=== PATIENT | female | born 1960 | race Caucasian/White ===

== ENCOUNTER 2024-11-09 11:05 | Emergency (ER) | payer OTHER ==
[2024-11-09 11:39] VITALS: PULSE 73; TEMP 98.6
--- NOTE | 2024-11-09 11:40 | ERPHSYRPT ---
- History of Present Illness Time Seen by Provider: 11/09/24 11:40 Source: patient, family Exam Limitations: no limitations Patient Subjective Stated Complaint: pt fell at school and cut her chin and has a headache Triage Nursing Assessment: Pt was brought to the ER by her daughter, hypertensive, rates head/chin pain as 3/10, pulses normal, skin n/w/d, does not feel like she needs her head checked but thinks she may need stitches, pt reports that there was a gas smell at the school and she opened a cabinet and breathed it in and then she passed out in the presence of another person, doesn't appear to be in any distress Physician History: This is a 64-year-old white female patient who arrives by private vehicle after falling at work. She works at the local high school. Patient does not recall all the events. She does recall smelling a scent of gas. It is unclear to her whether or not this caused her to fall. She fell directly onto the concrete floor causing a small chin laceration. Patient is not on any medications but does have a history in the past of hyperlipidemia and hypertension. She states that at the school her systolic blood pressure was 105. This type of episode is never occurred in the past. Patient states that she feels she is back to her typical baseline. Her systolic blood pressure is running 145. Patient denies chest pain. Patient denies shortness of breath. Occurred: just prior to arrival Reason for Fall: unknown, fell from height Injuries/Pain Location: face Loss of Consciousness: unsure Quality: aching Severity of Pain-Max: mild Severity of Pain-Current: none Modifying Factors: Improves With: nothing Associated Symptoms (Fall): denies symptoms Allergies/Adverse Reactions: codeine Allergy (Verified 11/09/24 11:38) Home Medications: No Reportable Medications [No Reported Medications] 11/09/24 [History] Hx Influenza Vaccination/Date Given: No Travel Risk - International Travel Have you traveled outside of the country in past 3 weeks: No - Emerging Infectious Disease Are you exhibiting symptoms associated with any current EIDs: No - Review of Systems Constitutional: No Symptoms Eyes: No Symptoms Ears, Nose, & Throat: Other (1 cm skin laceration with Steri-Strips in place) Respiratory: No Symptoms Cardiac: No Symptoms Abdominal/Gastrointestinal: No Symptoms Genitourinary Symptoms: No Symptoms Musculoskeletal: No Symptoms Skin: Other (1 cm skin laceration with Steri-Strips in place) Neurological: No Symptoms Psychological: No Symptoms Endocrine: No Symptoms Hematologic/Lymphatic: No Symptoms Immunological/Allergic: No Symptoms All Other Systems: Reviewed and Negative - Past Medical History Pertinent Past Medical History: Yes Cardiac History: High Cholesterol, Hypertension - Past Surgical History Past Surgical History: Yes Female Surgical History: Hysterectomy Other Surgical History: thyroidectomy - Social History Smoking Status: Never smoker Exposure to second hand smoke: No Drug Use: none - Social Determinants of Health Will the patient participate in the screening: Yes Do you worry about a steady place to live?: No Do you have any problems with any of the following?: No known problems In the past 12 months,have you had to go without utilities?: No Transportation Issues: No Has anyone in your support network made you feel unsafe?: No Have you or anyone in your house had to go w/o enough food: No - Nursing Vital Signs Nursing Vital Signs: Initial Vital Signs Temperature 98.6 F 11/09/24 11:31 Pulse Rate 73 11/09/24 11:31 Blood Pressure 145/78 11/09/24 11:31 O2 Sat by Pulse Oximetry 99 11/09/24 11:31 Pain Scale Pain Intensity 3 - Gary Coma Score Best Eye Response (Richar): (4) open spontaneously Best Verbal Response (Gary): (5) oriented Best Motor Response (Richar): (6) obeys commands Gary Total: 15 - Physical Exam General Appearance: no apparent distress, alert, anxiety, thin Head Injury: lacerations (1 cm skin laceration with Steri-Strips in place. These were placed prior to arrival to the emergency department) Eye Exam: PERRL/EOMI, eyes nml inspection ENT Exam: airway nml, evidence of ENT injury, No dental injury Neck Exam: supple, trachea midline, full range of motion, normal alignment, normal inspection Respiratory/Chest Exam: normal breath sounds, No chest tenderness, No respiratory distress, No ecchymosis, No crepitus Cardiovascular Exam: normal heart sounds, regular rate/rhythm Gastrointestinal Exam: soft, normal bowel sounds, No tenderness Rectal Exam: not done Back Exam: normal inspection, normal range of motion, No CVA tenderness, No vertebral tenderness Extremity Exam: normal inspection, normal range of motion, capillary refill <3 sec, pelvis stable Neurologic Exam: alert, oriented x 3, cooperative, hot die press feeder II-XII nml as tested, normal mood/affect, nml cerebellar function, nml station & gait, sensation nml Skin Exam: laceration (1 cm skin chin laceration with Steri-Strips in place) SpO2 Interpretation: normal SpO2: 99 O2 Delivery: Room Air Procedures - Laceration/Wound Repair Face Time of Procedure: 14:40 Wound Location: face (Chin) Wound Length (cm): 1 Wound's Depth, Shape: superficial, linear Wound Explored: clean (Wound explored to the base in a bloodless field and no foreign body noted) Irrigated: Yes Hibiclens Prep: Yes Wound Repaired With: Steri-strips, Dermabond Layer Closure?: No Progress: 11/09/24 14:49 The area was prepped with benzoin prep pad. The Dermabond was placed followed by 1/2 inch Steri-Strips. There were no complications. Patient tolerated the procedure well - Course Nursing assessment & vital signs reviewed: Yes EKG Interpreted by Me: RATE (58), Sinus Rhythm, NORMAL AXIS, NORMAL INTERVALS, NORMAL QRS, Other (QTc is 423. No acute ischemia.) Ordered Tests: Active Orders 24 hr Category Date Time Status EKG-ER Only STAT Care 11/09/24 12:04 Active IV Insertion STAT Care 11/09/24 12:04 Active Pulse Oximetry (ED) STAT Care 11/09/24 12:04 Active CERVICAL SPINE WO CONTRAST [CT] Stat Exams 11/09/24 11:40 Completed FACIAL BONES WO CONTRAST [CT] Stat Exams 11/09/24 11:40 Completed HEAD WITHOUT CONTRAST [CT] Stat Exams 11/09/24 11:40 Completed CBC W DIFF Stat Lab 11/09/24 12:23 Completed CMP Stat Lab 11/09/24 12:23 Completed MAGNESIUM Stat Lab 11/09/24 12:23 Completed TROPONIN Q4H Lab 11/09/24 12:23 Completed TROPONIN Q4H Lab 11/09/24 16:15 Ordered TROPONIN Q4H Lab 11/09/24 20:15 Ordered UA W/RFX UR CULTURE Stat Lab 11/09/24 14:11 Completed Medication Summary Discontinued Medications Generic Name Dose Route Start Last Admin Trade Name Freq PRN Reason Stop Dose Admin Sodium Chloride 1,000 mls @ 999 mls/hr 11/09/24 12:04 11/09/24 14:08 Sodium Chloride 0.9% 1000 Ml IV 11/09/24 13:04 Infused .Q1H1M STA Infusion Sodium Chloride Confirm 11/09/24 12:34 Sodium Chloride 0.9% 1000 Ml Administered 11/09/24 12:35 Dose 1,000 mls @ ud .ROUTE .STK-MED ONE Lab/Rad Data: Laboratory Result Diagrams 11/09/24 12:23 11/09/24 12:23 Laboratory Results 11/09/24 11/09/24 11/09/24 Range/Units 14:11 12:23 12:23 WBC (3.98-10.04) x10^3/uL RBC (3.93-5.22) x10^6/uL Hgb (11.2-15.7) g/dL Hct (34.1-44.9) % MCV (79.4-94.8) fL MCH (25.6-32.2) pg MCHC (32.2-35.5) g/dL RDW (11.7-14.4) % Plt Count (182-369) x10^3/uL MPV (9.4-12.3) fL Gran % (34.0-71.1) % Immature Gran % (Auto) (0.001-0.429) % Nucleat RBC Rel Count (0.00-0.2) % Eos # (Auto) (0.04-0.36) x10^3/uL Immature Gran # (Auto) (0.001-0.031) x10^3u/L Absolute Lymphs (auto) (1.18-3.74) x10^3/uL Absolute Monos (auto) (0.24-0.86) x10^3/uL Absolute Nucleated RBC (0.00-0.012) x10^3u/L Lymphocytes % (19.3-51.7) % Monocytes % (4.7-12.5) % Eosinophils % (0.7-5.8) % Basophils % (0.1-1.2) % Absolute Granulocytes (1.56-6.13) x10^3/uL Basophils # (0.01-0.08) x10^3/uL Sodium 141 (135-145) mmol/L Potassium 4.0 (3.5-5.1) mmol/L Chloride 105 (98-107) mmol/L Carbon Dioxide 27 (22-30) mmol/L Anion Gap 12.9 (5-15) MEQ/L BUN 11 (7-17) mg/dL Creatinine 0.65 (0.52-1.04) mg/dL Estimated GFR 97.7 ML/MIN Glucose 92 (74-106) mg/dL Calcium 9.9 (8.4-10.2) mg/dL Magnesium 1.8 (1.6-2.3) mg/dL Total Bilirubin 0.30 (0.2-1.3) mg/dL AST 26 (14-36) U/L ALT 15 (0-35) U/L Alkaline Phosphatase 66 (38-126) U/L Troponin I < 0.012 (0.000-0.033) ng/mL Serum Total Protein 6.6 (6.3-8.2) g/dL Albumin 4.4 (3.5-5.0) g/dL Urine Color Yellow (Yellow) Urine Appearance Clear (Clear) Urine pH 7.0 (4.6-8.0) Ur Specific [place] 1.010 (1.005-1.030) Urine Protein Negative (Negative) Urine Glucose (UA) Negative (Negative) mg/dL Urine Ketones Negative (Negative) Urine Blood Negative (Negative) Urine Nitrite Negative (Negative) Urine Bilirubin Negative (Negative) Urine Urobilinogen 0.2 (0.2) mg/dL Ur Leukocyte Esterase Trace A (Negative) U Hyaline Cast (Auto) NONE SEEN (0-2) /LPF Urine Microscopic RBC 0-2 (0-5) /HPF Urine Microscopic WBC 0-2 (0-5) /HPF Ur Epithelial Cells Rare (None Seen) /HPF Urine Bacteria None Seen (None Seen) /HPF Urine Culture Reflexed NO (NO) 11/09/24 Range/Units 12:23 WBC 7.5 (3.98-10.04) x10^3/uL RBC 4.01 (3.93-5.22) x10^6/uL Hgb 12.9 (11.2-15.7) g/dL Hct 38.0 (34.1-44.9) % MCV 94.8 (79.4-94.8) fL MCH 32.2 (25.6-32.2) pg MCHC 33.9 (32.2-35.5) g/dL RDW 12.3 (11.7-14.4) % Plt Count 291 (182-369) x10^3/uL MPV 10.6 (9.4-12.3) fL Gran % 71.8 H (34.0-71.1) % Immature Gran % (Auto) 0.5 H (0.001-0.429) % Nucleat RBC Rel Count 0.0 (0.00-0.2) % Eos # (Auto) 0.06 (0.04-0.36) x10^3/uL Immature Gran # (Auto) 0.04 H (0.001-0.031) x10^3u/L Absolute Lymphs (auto) 1.53 (1.18-3.74) x10^3/uL Absolute Monos (auto) 0.43 (0.24-0.86) x10^3/uL Absolute Nucleated RBC 0.00 (0.00-0.012) x10^3u/L Lymphocytes % 20.4 (19.3-51.7) % Monocytes % 5.7 (4.7-12.5) % Eosinophils % 0.8 (0.7-5.8) % Basophils % 0.8 (0.1-1.2) % Absolute Granulocytes 5.39 (1.56-6.13) x10^3/uL Basophils # 0.06 (0.01-0.08) x10^3/uL Sodium (135-145) mmol/L Potassium (3.5-5.1) mmol/L Chloride (98-107) mmol/L Carbon Dioxide (22-30) mmol/L Anion Gap (5-15) MEQ/L BUN (7-17) mg/dL Creatinine (0.52-1.04) mg/dL Estimated GFR ML/MIN Glucose (74-106) mg/dL Calcium (8.4-10.2) mg/dL Magnesium (1.6-2.3) mg/dL Total Bilirubin (0.2-1.3) mg/dL AST (14-36) U/L ALT (0-35) U/L Alkaline Phosphatase (38-126) U/L Troponin I (0.000-0.033) ng/mL Serum Total Protein (6.3-8.2) g/dL Albumin (3.5-5.0) g/dL Urine Color (Yellow) Urine Appearance (Clear) Urine pH (4.6-8.0) Ur Specific [place] (1.005-1.030) Urine Protein (Negative) Urine Glucose (UA) (Negative) mg/dL Urine Ketones (Negative) Urine Blood (Negative) Urine Nitrite (Negative) Urine Bilirubin (Negative) Urine Urobilinogen (0.2) mg/dL Ur Leukocyte Esterase (Negative) U Hyaline Cast (Auto) (0-2) /LPF Urine Microscopic RBC (0-5) /HPF Urine Microscopic WBC (0-5) /HPF Ur Epithelial Cells (None Seen) /HPF Urine Bacteria (None Seen) /HPF Urine Culture Reflexed (NO) - Progress Progress: improved, re-examined Progress Note: 11/09/24 12:36 My medical decision making and the assignment of moderate complexity is based on review of the patient's past medical history, review the patient's medication list, reviewed patient drug allergy list, history present illness and physical findings on examination. The workup in this patient includes CT scan of the head, CT scan of the face, CT scan of cervical spine all without contrast. In addition we we will place an intravenous line and infuse crystalloid solution, perform a twelve-lead EKG, troponin level, CBC, CMP, magnesium and urinalysis. Differential includes but is not limited to syncopal episode, dehydration, urinary tract infection, electrolyte abnormalities, acute intracranial abnormality, cervical spine fracture/subluxation/strain, facial bone fracture/dislocation/contusion 11/09/24 14:[address] scans performed were all without contrast and interpreted by the radiologist. The impressions are as follows: CT scan of the head shows no acute intracranial abnormality. There is no evidence of fracture. CT scan of the cervical spine shows no acute fracture or dislocation. There are mild degenerative changes. There is multilevel disc bulges at C2-C6. CT scan of the facial bones shows no acute fracture or dislocation. 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 There is also soft tissue and mild skin thickening at the level of the chin. 11/09/24 14:48 The urinalysis was interpreted by me. There is no evidence of any urinary tract infection. 11/09/24 14:50 Patient has no chest pain. Patient is not dizzy. Counseled pt/family regarding: lab results, diagnosis, need for follow-up, rad results Medical Desision Making - Independent Historian Additional History obtained from: Family - Diagnostic Testing Diagnostic test were ordered, analyzed, and reviewed by me: Yes Radiological Interpretation: Reviewed by me, Teleradiologist Report - Risk of complications Low Risk: Low risk of morbidity from additional dx testing or treatment - Departure Departure Disposition: Home Clinical Impression: Dizzy, Fall with significant injury, Laceration of chin Condition: Stable Critical Care Time: No Referrals: SUPRIYA HUERTA, ENGINEERING MECHANIC [Primary Care Provider, UNKNOWN] - Follow up/PCP as directed Additional Instructions: Keep the Steri-Strips in place. Keep them dry. Tomorrow evening, 11/09/2024, may rinse the laceration repair site with soapy water. Blot dry use a liberal arts and humanities chair. Trim the Steri-Strips as they curl up. Call your primary care provider today, 11/09/2024, to make a follow-up appointment for further evaluation management.
[2024-11-09] MEDS ORDERED: Sodium Chloride 0.9% 1000 ML 1,000 ML ONE (12:34)
[2024-11-09 12:37] LABS: Absolute Neutrophil Ct (ANC) 5.39 x10^3/uL (1.56-6.13); BASOPHIL % 0.8 % (0.1-1.2); Basophil (Absolute #) 0.06 x10^3/uL (0.01-0.08); Eosinophil % 0.8 % (0.7-5.8); Eosinophil (Absolute #) 0.06 x10^3/uL (0.04-0.36); Hemoglobin 12.9 g/dL (11.2-15.7); IMMATURE GRAN # 0.04 x10^3u/L (0.001-0.031); IMMATURE GRAN % 0.5 % (0.001-0.429); Lymphocyte (Absolute #) 1.53 x10^3/uL (1.18-3.74); Lymphocytes % 20.4 % (19.3-51.7); Mean Cell Volume 94.8 fL (79.4-94.8); Mean Corpuscular Hemoglobin 32.2 pg (25.6-32.2); Mean Corpuscular Hgb Concent. 33.9 g/dL (32.2-35.5); Mean Platelet Volume 10.6 fL (9.4-12.3); Monocyte (Absolute #) 0.43 x10^3/uL (0.24-0.86); Monocytes % 5.7 % (4.7-12.5); Neutrophil % 71.8 % (34.0-71.1); Platelet Count 291 x10^3/uL (182-369); Red Blood Count 4.01 x10^6/uL (3.93-5.22); Red Cell Distribution Width 12.3 % (11.7-14.4); White Blood Count 7.5 x10^3/uL (3.98-10.04)
[2024-11-09 12:49] LABS: ALBUMIN 4.4 g/dL (3.5-5.0); ANION GAP 12.9 MEQ/L (5-15); BILIRUBIN,TOTAL 0.3 mg/dL (0.2-1.3); Calcium 9.9 mg/dL (8.4-10.2); Creatinine 1 0.65 mg/dL (0.52-1.04); EST GLOMERULAR FILTRATION RATE 97.7 ML/MIN; MAGNESIUM 1.8 mg/dL (1.6-2.3); Total Protein 6.6 g/dL (6.3-8.2)
--- NOTE | 2024-11-09 12:49 | XRAY ---
CLINICAL HISTORY: Fall injury COMPARISON: None. TECHNIQUE: An axial non-contrast CT scan of the brain was performed from the skull base to the high parietal region. One of the following dose reduction techniques was utilized for this exam: Automated exposure control, adjustment of the mA and/or kV according to patient size, and use of iterative reconstruction. FINDINGS: Brain Parenchyma: Normal attenuation of the cerebral hemispheres, cerebellum, and brainstem. No evidence of acute infarct, hemorrhage, or mass effect. No abnormal areas of hypo- or hyperattenuation. Ventricular System: Ventricles are normal in size and configuration. No evidence of hydrocephalus or ventricular enlargement. Subarachnoid Spaces: Accentuated cortical sulci and extra-axial CSF spaces in bilateral parietal region, consistent with age A 14x11 mm extra-axial rounded fluid density lesion is seen adjacent to the right cerebral peduncle of the mid-brain. No evidence of subarachnoid hemorrhage. Cerebellum and Brainstem: No masses, lesions, or areas of abnormal density. Orbits: Normal appearance of the globes, optic nerves, and extraocular muscles. No evidence of orbital masses or abnormal density. Sinuses: Clear paranasal sinuses. No evidence of sinusitis or mucosal thickening. Mastoid Air Cells: Clear mastoid air cells. No evidence of mastoiditis. Skull: Normal skull morphology. No calvarial fracture or scalp hematoma. A 19 x 14 mm hyperdensity is seen on the posterior surface of the head outside the skin surface - likely artifactual/hair clip with hair tuft. IMPRESSION: 1. No calvarial fractures, intra or extra-axial hematomas, or parenchymal territorial hypodense areas suggestive of acute ischemic insult. 2. Age-matched cortical brain involutional changes. 3. A 14 x 11 mm extra-axial rounded fluid density lesion is seen adjacent to the right cerebral peduncle of the midbrain - likely a small arachnoid cyst. Electronically Signed by: Piotr Ortiz MD. (11/09/2024 12:47:11 EDT)
[2024-11-09] MEDS: Sodium Chloride 0.9% 1000 ML 1,000 ML IV STA (12:55)
--- NOTE | 2024-11-09 12:57 | XRAY ---
CLINICAL HISTORY: Fall injury COMPARISON: No previous studies are available for comparison. TECHNIQUE: CT scan of the cervical spine was performed without the administration of intravenous contrast. Contiguous axial images were obtained from the skull base to the upper thoracic spine. Coronal and sagittal reformatted images were also reviewed. One of the following dose reduction techniques was utilized for this exam. Automated exposure control, adjustment of the mA and/or kV according to patient size, and use of iterative reconstruction. FINDINGS: Vertebrae: Cervical tilt towards left cranially. The vertebral bodies are normal in height. Multilevel end plate irregularities, as seen more evident at inferior end plates of C6 and C7 vertebral bodies with Schmorl nodes. Tiny anterior osteophytes are seen at multiple levels as well. No evidence of acute fracture or dislocation. No signs of lytic or sclerotic lesions. Normal configuration of the posterior elements. Atlanto-axial and atlanto-occipital joints show mild degenerative changes Intervertebral Discs: The intervertebral disc spaces are preserved. Multilevel central disc bulges are seen from C2 to C6 levels, indenting ventral thecal sac. Disc osteophytic complex at C6-C7 level is indenting ventral thecal sac and partially obliterating bilateral neural foramina causing compression of bilateral exiting nerve roots right more than left. Facet Joints: The facet joints show no evidence of dislocation or subluxation, however multilevel degenerative changes are seen at lower cervical levels on the left side. Prevertebral Soft Tissues: The prevertebral soft tissues are normal in thickness without evidence of mass or abnormal fluid collection. Additional Findings: No other significant findings are noted in the visualized soft tissue structures or bony elements. Slices through lung apices bilateral apical pleural thickening. Deficient right lobe of thyroid gland. IMPRESSION: 1. CT scan of the cervical spine shows no evidence of acute fracture, dislocation. 2. Mild degenerative changes. 3. Multilevel central disc bulges are seen from C2 to C6 levels, indenting ventral thecal sac. 4. Disc osteophytic complex at C6-C7 level is indenting ventral thecal sac and partially obliterating bilateral neural foramina causing moderate compression of bilateral exiting nerve roots right more than left. MRI cervical spine is advised if clinically indicated. Electronically Signed by: Piotr Ortiz MD. (11/09/2024 12:54:04 EDT)
--- NOTE | 2024-11-09 13:21 | XRAY ---
CLINICAL HISTORY: Fall injury COMPARISON: No previous studies are available for comparison. TECHNIQUE: CT scan of the maxillofacial region was performed without the administration of intravenous contrast. Contiguous axial images were obtained from the skull base to the mandible. Coronal and sagittal reformatted images were also reviewed. One of the following dose reduction techniques was utilized for this exam. Automated exposure control, adjustment of the mA and/or kV according to patient size, and use of iterative reconstruction. FINDINGS: Bones: Maxilla: The maxillary bones are intact without evidence of acute fracture, lytic or sclerotic lesions. No signs of maxillary sinus wall fractures. Mandible: The mandibular bone is intact with normal cortices and trabecular patterns. There is no evidence of fracture, osteomyelitis. Torus mandibularis noted. Zygomatic Bones: The zygomatic arches are intact bilaterally without evidence of fracture or deformity. Nasal Bones: The nasal bones are intact with no signs of fracture or displacement. Orbital Estes: The orbital estes are intact with no evidence of fracture or bony erosion. Orbits: The orbits are normal in size and shape. The globes are symmetric and well-positioned with no evidence of proptosis. The extraocular muscles appear normal in size and symmetry. The optic nerves are normal in caliber and course with no signs of compression or lesion. No retro-orbital masses or abnormal fluid collections are observed. Nasal Cavity and Paranasal Sinuses: Nasal Cavity: The nasal cavity is clear with no evidence of masses, polyps, or septal deviation. Frontal Sinuses: The frontal sinuses are well-pneumatized and free of fluid or soft tissue masses. Ethmoid Sinuses: The ethmoid air cells are clear with no mucosal thickening or fluid levels. Maxillary Sinuses: The maxillary sinuses are well-pneumatized with no fluid levels, mucosal thickening, or masses. Sphenoid Sinuses: The sphenoid sinuses are clear with no abnormalities noted. Temporomandibular Joints (TMJ): Bilatearl Mild TMJ osotearhtirits. The mandibular condyles are well-positioned within the glenoid fossae. There are no signs of dislocation, subluxation, or degenerative changes. The articular eminences are normal in contour. Soft Tissues: Mild soft tissue and skin thickening is seen at chin - likely post traumatic injury. There are no masses, cysts, or abnormal fluid collections. The parotid and submandibular glands are normal in size and appearance without focal lesions. Dentition: Erosions of 2nd upper molar crown on right side with osteolysis of alveolar tooth bed. Complete erosion of 1st and 2nd molar crown on left side as well as premolar and canine with osteolysis of alveolar tooth bed. Teeth are missing in inferior alveolar arch as well. Additional Findings: Bilateral subcentimeter reactive upper cervical lymph nodes are seen. IMPRESSION: 1. CT scan of the maxillofacial region shows no evidence of acute fracture or dislocation. 2. Mild soft tissue and skin thickening is seen at chin - likely post-traumatic injury. 3. Torus mandibularis noted. normal variant. 4. Erosive changes in teeth, with osteolysis surrounding roots. 5. Bilateral Mild TMJ Osteoarthritis. RECOMMENDATIONS: No further imaging is required at this time. Clinical correlation is recommended for any persistent symptoms. Electronically Signed by: Piotr Ortiz MD. (11/09/2024 13:17:29 EDT)
[2024-11-09 14:22] LABS: Appearance Clear (Clear); Bacteria None Seen /HPF (None Seen); Bilirubin Negative (Negative); Blood Negative (Negative); Epithelial Cells Rare /HPF (None Seen); Glucose, Urine Negative (Negative); Hyaline Casts NONE SEEN /LPF (0-2); Ketones Negative (Negative); Leukocyte Esterase Trace (Negative); Nitrite Negative (Negative); Protein,Urine Dip Negative (Negative); RBC 0-2 /HPF (0-5); Urobilinogen 0.2 mg/dL (0.2); WBC 0-2 /HPF (0-5)
[2024-11-09 14:27] VITALS: O2SAT 99
[2024-11-09 14:54] VITALS: BP 137/46
== END 2024-11-09 15:00 | disposition home or self-care (01) ==
LOC: ED 11:05
DX: S01.81XA Laceration without foreign body of other part of head, initial encounter (principal); W18.39XA Other fall on same level, initial encounter; Y92.213 High school as the place of occurrence of the external cause; Y99.0 Civilian activity done for income or pay; R42 Dizziness and giddiness
CPT/HCPCS: 12011; 36415; 70450; 70486; 72125; 80053; 81001; 83735; 84484; 85025; 93005; 94760; 96360; 99284; 99285